=== PATIENT | female | born 1995 | race Two or more races ===

== ENCOUNTER 2019-03-02 22:33 | Emergency (ER) | payer SELFPAY ==
[~2019-03-02] VITALS: Ht 170.2 cm; Wt 57.8 kg
[2019-03-02 22:36] VITALS: BP 133/80
== END 2019-03-02 23:41 | disposition home or self-care (01) ==
LOC: ED 23:15
DX: L02.415 Cutaneous abscess of right lower limb (principal); J45.909 Unspecified asthma, uncomplicated; Z79.899 Other long term (current) drug therapy
CPT/HCPCS: 10060; 90471; 90715; 99283; Q0162

== ENCOUNTER 2019-10-08 11:37 | Emergency (ER) | payer SELFPAY ==
[~2019-10-08] VITALS: Ht 170.2 cm; Wt 64.0 kg
[2019-10-08 11:39] VITALS: BP 126/81
--- NOTE | 2019-10-08 11:47 | NUR ---
PT STATES SHE FELL IN THE KITCHEN AND LANDED ON A BROKEN CLASS BOWL, LAC TO RIGHT ARM. Addendum: 10/08/19 at 1148 by JENA LEFT ARM
[2019-10-08] MEDS ORDERED: LIDOCAINE-MPF 1%, 5ML ONE (11:57)
[2019-10-08] MEDS ORDERED: LIDOCAINE-MPF 1%, 5ML INFIL ONE (12:00)
[2019-10-08] MEDS ORDERED: IBUPROFEN 600 MG TABLET ONE (12:00)
[2019-10-08] MEDS ORDERED: IBUPROFEN 200 MG TABLET PO ONE (12:00)
--- NOTE | 2019-10-08 13:04 | NUR ---
Patient/Caregiver given discharge instructions and they have confirmed that they understand the instructions. Patient ambulatory with steady gait.
== END 2019-10-08 13:11 | disposition home or self-care (01) ==
LOC: ED 12:30
DX: S51.812A Laceration without foreign body of left forearm, initial encounter (principal); S50.12XA Contusion of left forearm, initial encounter; J45.909 Unspecified asthma, uncomplicated; W01.0XXA Fall on same level from slipping, tripping and stumbling without subsequent striking against object, initial encounter; Y93.89 Activity, other specified; Y92.009 Unspecified place in unspecified non-institutional (private) residence as the place of occurrence of the external cause; Y99.8 Other external cause status
CPT/HCPCS: 12031; 99284

== ENCOUNTER 2019-10-13 02:46 | Emergency (ER) | payer BC ==
[~2019-10-13] VITALS: Ht 170.2 cm; Wt 63.7 kg
[2019-10-13 02:52] VITALS: BP 129/83
[2019-10-13] MEDS ORDERED: HYDROcodone/APAP 5/325 TABLET PO STA (03:45)
[2019-10-13] MEDS ORDERED: FAMOTIDINE 20 MG TABLET PO ONE (04:00)
[2019-10-13 04:18] LABS: HCG UR SG 1.012 (1.003-1.030)
[2019-10-13] MEDS ORDERED: HYDROcodone/APAP 5/325 TABLET ONE (04:24)
[2019-10-13] MEDS ORDERED: FAMOTIDINE 20 MG TABLET ONE (04:24)
== END 2019-10-13 05:06 | disposition home or self-care (01) ==
LOC: ED 04:45
DX: M25.561 Pain in right knee (principal); M79.602 Pain in left arm; R21 Rash and other nonspecific skin eruption; M79.10 Myalgia, unspecified site
CPT/HCPCS: 81025; 99284; Q0177

== ENCOUNTER 2019-12-19 03:51 | Emergency (ER) | payer BC ==
[~2019-12-19] VITALS: Ht 170.2 cm; Wt 59.8 kg
[2019-12-19 03:54] VITALS: BP 119/78
[2019-12-19] MEDS ORDERED: DIPH,PERTUSS(ACELL),TET VAC/PF 0.5 ML IM-VACC ONE (04:00)
[2019-12-19] MEDS ORDERED: albuterol inhaler (04:09)
--- NOTE | 2019-12-19 04:11 | NUR ---
per pt, last tetanus was february. sawyer steward notified. hold tetanus at this time.
--- NOTE | 2019-12-19 04:23 | NUR ---
xr at bs.
[2019-12-19] MEDS ORDERED: HYDROcodone/APAP 5/325 TABLET PO ONE (05:00)
[2019-12-19] MEDS ORDERED: HYDROcodone/APAP 5/325 TABLET ONE (05:07)
== END 2019-12-19 05:41 | disposition home or self-care (01) ==
LOC: ED 04:40
DX: S62.346A Nondisplaced fracture of base of fifth metacarpal bone, right hand, initial encounter for closed fracture (principal); L03.113 Cellulitis of right upper limb; J45.909 Unspecified asthma, uncomplicated; W20.8XXA Other cause of strike by thrown, projected or falling object, initial encounter; Y93.89 Activity, other specified; Y92.098 Other place in other non-institutional residence as the place of occurrence of the external cause; Y99.8 Other external cause status
CPT/HCPCS: 29125; 99283

== ENCOUNTER 2020-02-20 00:46 | Emergency (ER) | payer BC ==
[~2020-02-20] VITALS: Ht 170.2 cm; Wt 60.4 kg
[~2020-02-20 00:46] MED LIST: albuterol inhaler
--- NOTE | 2020-02-20 01:55 | NUR ---
pt to room from lobby
[2020-02-20] MEDS ORDERED: LIDOCAINE-MPF 1%, 5ML INFIL ONE (02:30)
[2020-02-20] MEDS ORDERED: LIDOCAINE-MPF 1%, 5ML ONE (02:47)
[2020-02-20] MEDS ORDERED: CEFTRIAXONE PMX 1GM/50ML 50 ML IV ONE (04:00)
[2020-02-20] MEDS ORDERED: VANCOMYCIN 1,200 MG in SODIUM CHLORIDE 0.9% 250 ML IV ONE (04:00)
[2020-02-20] MEDS ORDERED: VANCOMYCIN PER PHARMACY MC PRN (04:00)
[2020-02-20] MEDS ORDERED: CEFTRIAXONE PMX 1GM/50ML 50 ML ONE (04:02)
[2020-02-20] MEDS ORDERED: NEOSPORIN OINT. PKT 1 PACKET ONE (05:06)
[2020-02-20 06:07] VITALS: BP 100/58
== END 2020-02-20 06:24 | disposition home or self-care (01) ==
LOC: ED 06:19
DX: S61.240A Puncture wound with foreign body of right index finger without damage to nail, initial encounter (principal); K64.4 Residual hemorrhoidal skin tags; L03.011 Cellulitis of right finger; L03.113 Cellulitis of right upper limb; G89.11 Acute pain due to trauma; X58.XXXA Exposure to other specified factors, initial encounter; Y93.89 Activity, other specified; Y92.098 Other place in other non-institutional residence as the place of occurrence of the external cause; Y99.8 Other external cause status
CPT/HCPCS: 10120; 73130; 96374; 96375; 99284; J0696; J3370; J7050

== ENCOUNTER 2020-03-24 05:54 | Emergency (ER) | payer BC ==
[~2020-03-24] VITALS: Ht 170.2 cm; Wt 57.9 kg
[2020-03-24 05:58] VITALS: BP 139/96
--- NOTE | 2020-03-24 07:01 | NUR ---
Report from Beverly HERNANDEZ. Pt resting in bed watching TV, NADN, denies needs. Awaiting CT result.
== END 2020-03-24 07:57 | disposition home or self-care (01) ==
LOC: ED 06:29
DX: S09.90XA Unspecified injury of head, initial encounter (principal); J45.909 Unspecified asthma, uncomplicated; X58.XXXA Exposure to other specified factors, initial encounter; Y93.89 Activity, other specified; Y92.89 Other specified places as the place of occurrence of the external cause; Y99.8 Other external cause status
CPT/HCPCS: 70450; 99284

== ENCOUNTER 2021-03-02 05:45 | Emergency (ER) | payer SELFPAY ==
[~2021-03-02] VITALS: Ht 172.7 cm; Wt 60.7 kg
--- NOTE | 2021-03-02 06:55 | NUR ---
PT LAYING ON GURNEY WITH FRIEND, MARGY/DANGELO. PT C/O SWELLING ON TOP OF HEAD, PER PT SHE HAS AN INDENTATION FROM A GLASS BOTTLE & THINKS SHE STILL HAS GLASS IN HER HEAD. PT ALSO C/O SWELLING IN BOTH LEGS WITH SORES BILATERALLY. PT CONNECTED TO MONITORS, CALL LIGHT WITHIN REACH
[2021-03-02 06:59] VITALS: BP 116/81
[2021-03-02] MEDS ORDERED: ACETAMINOPHEN 325 MG TABLET ONE (07:12)
--- NOTE | 2021-03-02 07:15 | NUR ---
PT TO CT
--- NOTE | 2021-03-02 07:27 | NUR ---
PT BACK FROM CT, CONNECTED TO MONITORS, CALL LIGHT WITHIN REACH
[2021-03-02] MEDS ORDERED: ACETAMINOPHEN 325 MG TABLET PO ONE (07:30)
--- NOTE | 2021-03-02 08:26 | NUR ---
Patient given discharge instructions and they have confirmed that they understand the instructions. Patient ambulatory with steady gait.
== END 2021-03-02 08:27 | disposition home or self-care (01) ==
LOC: ED 07:31
DX: S09.90XA Unspecified injury of head, initial encounter (principal); J45.909 Unspecified asthma, uncomplicated; X58.XXXA Exposure to other specified factors, initial encounter; Y93.89 Activity, other specified; Y92.410 Unspecified street and highway as the place of occurrence of the external cause; Y99.8 Other external cause status
CPT/HCPCS: 70450; 99284

== ENCOUNTER 2021-03-23 23:41 | Emergency (ER) | payer OTHER ==
[~2021-03-23] VITALS: Ht 170.2 cm; Wt 63.8 kg
[2021-03-23 23:44] VITALS: BP 137/89
--- NOTE | 2021-03-24 02:26 | NUR ---
Patient/Caregiver given discharge instructions and they have confirmed that they understand the instructions. Patient ambulatory with steady gait. NAD, all questions answered appropriately, denies additional needs at this time. No personal belongings left in room after discharge.
== END 2021-03-24 02:27 | disposition home or self-care (01) ==
LOC: ED 23:59
DX: S06.0X0A Concussion without loss of consciousness, initial encounter (principal); S00.83XA Contusion of other part of head, initial encounter; J45.909 Unspecified asthma, uncomplicated; X58.XXXA Exposure to other specified factors, initial encounter; Y93.89 Activity, other specified; Y92.009 Unspecified place in unspecified non-institutional (private) residence as the place of occurrence of the external cause; Y99.8 Other external cause status
CPT/HCPCS: 70450; 99284